=== PATIENT | female | born 1985 | race Caucasian/White ===

== ENCOUNTER 2016-11-05 00:01 | Inpatient (IN) | payer OTHER ==
[2016-11-05] MEDS ORDERED: LIDOCAINE HCL 50 ML VIAL PERI PRN (00:07)
[2016-11-05] MEDS ORDERED: ONDANSETRON HCL/PF 2 MG/ML VIAL IV PRN (00:07)
[2016-11-05] MEDS ORDERED: OXYTOCIN/DEXTROSE 5%-WATER 30 UNITS/500 ML BAG IV ONE (00:07)
[2016-11-05] MEDS ORDERED: MISOPROSTOL 100 MCG TABLET VG PRN (00:07)
[2016-11-05 00:17] LABS: Hematocrit 38.6 % (37.0-47.0); Hemoglobin 13.2 gm/dL (12.5-16.0); Mean Cell Volume 84.8 fl (78-100); Mean Corpuscular Hgb Conc 34.2 g/dl (32-36); Mean Platelet Volume 12.2 fl (6.0-9.5); Neutrophil # 10.4 K/mm3 (1.3-6.0); Neutrophil % 68.1 % (42-75.0); Platelet Count 177 K/mm3 (150-450); Red Blood Count 4.55 M/mm3 (4.2-5.4); Red Cell Distribution Width 13.6 % (11.5-14.0); White Blood Count 15.3 K/mm3 (4.0-10.5)
[2016-11-05 00:30] LABS: Albumin * 2.6 gm/dl (3.4-5.0); Anion Gap 14.2 mmol/L (6.8-13.8); BUN/Creatinine Ratio 15.5 (9.0-21.6); Bilirubin, Total 0.3 mg/dL (0.0-1.1); Ca. Corrected For Albumin 10.3 mg/dL (8.4-10.2); Calcium * 9.5 mg/dL (7.9-10.9); Carbon Dioxide 22.9 mmol/L (24-32.6); Potassium 4.1 mmol/L (3.4-4.6); Total Protein 6.1 gm/dL (6.2-8.2)
[2016-11-05 03:52] LABS: Random Urine Total Protein Less than 6.0 mg/dL (0-12)
--- NOTE | 2016-11-05 08:46 | PN ---
Progess Note - Interim Narrative: 11/05/16 08:44 Patient starting to feel contractions Vital signs stable - blood pressures mildly elevated none in severe range. Status post Cytotec 25 g one dose at around 1:30 AM FHT: 140 baseline, reassuring Contractions q 2-4 min Cervix: Fingertip/50/-3 Impression: Intrauterine at 37 weeks induction of labor for gestational hypertension Plan: Continue present plan
[2016-11-05] MEDS: RINGERS SOLUTION,LACTATED 1,000 ML IV ONE (20:54)
[2016-11-06] MEDS ORDERED: BUPIVACAINE HCL/0.9 % NACL/PF 250 ML EP PRN ×2 (08:16→09:03)
[2016-11-06] MEDS ORDERED: NALOXONE HCL 1 MG/1 ML SYRG IV PRN (08:16)
[2016-11-06] MEDS ORDERED: ONDANSETRON HCL/PF 2 MG/ML VIAL IV PRN (08:16)
[2016-11-06] MEDS ORDERED: BUPIVACAINE HCL/PF 30 ML VIAL EP SCH (08:30)
--- NOTE | 2016-11-06 08:56 | PN ---
Progess Note - Interim Narrative: 11/06/16 08:54 Patient desiring an epidural. Reading contractions 12/27. Vital signs stable. Pitocin at 6 mu/min. FHT: 135 baseline, reassuring Contractions q 2-3 min Cervix: 1-2/50/-2 Impression: Intrauterine at 37-1/7 weeks on second day of induction of labor for gestational hypertension - no blood pressures in severe range over the past 12 hours. Plan: We'll request epidural and rupture membranes when a little further along.
[2016-11-06] MEDS: RINGERS SOLUTION,LACTATED 1,000 ML IV ONE (08:59)
[2016-11-06] MEDS ORDERED: fentaNYL CITRATE/PF 50 MCG/ML AMPUL IT SCH (09:15)
--- NOTE | 2016-11-06 10:05 | OR ---
Anesthesia Procedure Note - Anesthesia Procedure Note Narrative: Vital Signs - Last Taken Temp 36.5 C 11/06/16 09:36 Pulse 77 11/06/16 09:36 Resp 16 11/06/16 09:36 BP 142/97 11/06/16 09:36 Pulse Ox 97 11/06/16 09:36 11/06/16 10:05 ANESTHESIA PROCEDURE NOTE Date of Procedure: 11/06/2016 Time of procedure: 954. Performed by: Romario Escoto CRNA Brain Surgeon: None. Preprocedure diagnosis: Active labor. Post procedure diagnosis: Same. Procedure: Insertion of labor epidural. 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 Findings: See below. Details of the procedure: The patient was placed in a sitting position. Back was prepped with DuraPrep. Patient was then draped in a sterile fashion. Lidocaine 1% was infiltrated to the skin and subcutaneous tissues at the level of the L3 4 interspace. The epidural space was identified using a 18-gauge Tuohy needle with [id number] technique. 20 mcg fentanyl was given intrathecally using a 27 ga. spinal needle. Epidural catheter was inserted without difficulty. Negative test dose was elicited using 5 mL of 1.5% preservative-free lidocaine plus epinephrine 1 200,000. The epidural catheter was then taped and secured in place. EBL: Minimal. Fluids: N/A. Specimen: N/A. Post procedure condition: The patient tolerated the procedure well. No complications were noted. Thank you for this consultation. Gage CRNA
[2016-11-06] MEDS: DEXTROSE 5%-LACTATED RINGERS 1,000 ML IV PRN ×3 (10:30→23:24)
--- NOTE | 2016-11-06 13:17 | PN ---
Progess Note - Interim Narrative: 11/06/16 13:16 Patient comfortable with epidural Vital signs stable. Pitocin at 15 mu/min. FHT: 130 baseline, reassuring Contractions q 2-4 minutes Cervix: No change, AROM-clear Impression: Intrauterine at 37-1/7 week weeks induction of labor for gestational hypertension making slow progress Plan: Continue present plan
[2016-11-06] MEDS ORDERED: ACETAMINOPHEN 500 MG TABLET PO ONE (16:33)
--- NOTE | 2016-11-06 17:39 | PN ---
Progess Note - Interim Narrative: 11/06/16 17:36 Patient comfortable with epidural Vital signs stable. Pitocin at 18 mu/min. FHT: 130 baseline, reassuring Contractions q 2-3 min Cervix: 4/80/-2 Impression: Intrauterine at 37 1/7 weeks induction of labor for gestational hypertension Plan: Continue present plan
[2016-11-07] MEDS ORDERED: BISACODYL 10 MG SUPP.RECT RC PRN (01:54)
[2016-11-07] MEDS ORDERED: oxyCODONE HCL/ACETAMINOPHEN 1 TAB TABLET PO PRN ×2 (01:54)
[2016-11-07] MEDS ORDERED: HYDROCORTISONE 30 APPL TUBE TP PRN (01:54)
[2016-11-07] MEDS ORDERED: OXYTOCIN/DEXTROSE 5%-WATER 30 UNITS/500 ML BAG IV ONE (01:54)
[2016-11-07] MEDS ORDERED: GLYCERIN/WITCH HAZEL LEAF 40 APPL BOX TP PRN (01:54)
[2016-11-07] MEDS ORDERED: SENNOSIDES 8.6 MG TABLET PO PRN (01:54)
[2016-11-07] MEDS ORDERED: BENZOCAINE/MENTHOL 81 SPRAY CAN TP PRN (01:54)
--- NOTE | 2016-11-07 02:00 | OR ---
Operative Report - Dictated Report Narrative: Indication: Maternal exhaustion and tachycardia Pre Procedure Patient was counseled to the risk, benefits, and alternatives to operative vaginal delivery. All questions were answered. Patient consented to proceed with operative vaginal delivery. heart rate interpretation: Baseline 170 with good beat to beat variability , good accelerations, and occasional late deceleration, EFW 3400 g, station +2, Position of head LUIS, Anesthesia: epidural Cervix was completely dilated and effaced, maternal- size appropriate for application, bladder was emptied Procedure Galarza/Luikart forceps easily applied, hinge/lock approximated without difficulty, 2 pulls, advancement in station with each pull, degree of rotation 0 -45, forceps removed once the head cleared the pubic bone Post Procedure Viable female born at 0 113 on [birth year]2016 with Apgars 8 and 9, weighing 3215 g in LUIS position. Cord clamping delayed approximately 1 minute Cord gases not collected, Placenta spontaneously delivered, EBL 75 mL, loose nuchal cord 1 with foot cord 1, no injury, no shoulder dystocia Lacerations: Second-degree vaginal laceration (5 cm) repaired with 3-0 Vicryl Rapide History for MU Definition: * The number of deliveries resulting in a live the patient experienced prior to current hospitalization * The previous delivery of live twins or any live multiple gestation is considered one live event. *If primagravida or nulliparous is documented select zero for the number of previous live births. Live Events: 0
[2016-11-07] MEDS: IBUPROFEN 800 MG TABLET PO PRN ×3 (02:02→17:23)
[2016-11-07] MEDS ORDERED: HYDROcodone/ACETAMINOPHEN 1 EACH TABLET PO PRN (02:06)
[2016-11-07] MEDS: HYDROcodone/ACETAMINOPHEN 1 EACH TABLET PO PRN ×2 (02:31→17:22)
[2016-11-07] MEDS ORDERED: PRENATAL VIT#96/FERROUS FUM/FA 1 TAB TABLET PO SCH (09:00)
[2016-11-07] MEDS ORDERED: MAGNESIUM PO SCH (09:00)
[2016-11-07] MEDS: MAGNESIUM OXIDE 400 MG TABLET PO SCH (11:14)
[2016-11-07] MEDS: DOCUSATE SODIUM 100 MG CAPSULE PO SCH ×2 (11:14→20:26)
[2016-11-07] MEDS: PRENATAL VIT#96/FERROUS FUM/FA 1 TAB TABLET PO SCH (11:14)
[2016-11-08] MEDS: HYDROcodone/ACETAMINOPHEN 1 EACH TABLET PO PRN ×3 (03:45→19:02)
[2016-11-08] MEDS: IBUPROFEN 800 MG TABLET PO PRN ×3 (03:45→20:14)
[2016-11-08] MEDS: PRENATAL VIT#96/FERROUS FUM/FA 1 TAB TABLET PO SCH (08:45)
[2016-11-08] MEDS: MAGNESIUM OXIDE 400 MG TABLET PO SCH (08:45)
[2016-11-08] MEDS: DOCUSATE SODIUM 100 MG CAPSULE PO SCH ×2 (08:45→20:12)
--- NOTE | 2016-11-08 09:12 | PN ---
Subjective - Date and Time Seen Date: 11/08/16 Time: 09:08 Objective - Vitals Vitals: Last Vital Signs Temp 36.4 C L 11/08/16 07:04 Pulse 100 11/08/16 07:04 Resp 16 11/08/16 07:04 BP 152/95 11/08/16 07:04 Pulse Ox 97 11/08/16 07:04 Patient complaining of tailbone pain. 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 Lochia wnl Abdomen - soft, nontender Uterus - firm, at umbilicus - 1 No calf tenderness DTR-2/4 1-2+ pitting edema of lower extremities Impression: day #1 - s/p spontaneous vaginal delivery. Gestational hypertension-stable. Fractured coccyx-stable. Plan: Continue routine care. Continue monitoring for signs or symptoms of severe features of preeclampsia/gestational hypertension. Ice packs and soft cushion for sitting on. Cauti Physician Documentation - Urinary Catheter Management Urethral ([place]) Date of Insertion: 11/06/16 Time of Insertion: 10:18
[2016-11-09] MEDS: HYDROcodone/ACETAMINOPHEN 1 EACH TABLET PO PRN ×3 (00:59→10:22)
[2016-11-09] MEDS: IBUPROFEN 800 MG TABLET PO PRN (05:58)
[2016-11-09 08:06] VITALS: BP 141/95
[2016-11-09] MEDS: PRENATAL VIT#96/FERROUS FUM/FA 1 TAB TABLET PO SCH (09:01)
[2016-11-09] MEDS: MAGNESIUM OXIDE 400 MG TABLET PO SCH (09:02)
[2016-11-09] MEDS: DOCUSATE SODIUM 100 MG CAPSULE PO SCH (09:02)
--- NOTE | 2016-11-09 13:06 | PN ---
Subjective - Date and Time Seen Date: 11/09/16 Time: 13:05 - Seen at 0930 this am Objective - Vitals Vitals: Last Vital Signs Temp 36.5 C 11/09/16 01:00 Pulse 102 H 11/09/16 07:30 Resp 20 11/09/16 07:30 BP 141/95 11/09/16 07:30 Pulse Ox 100 11/09/16 07:30 Patient denies complaints. Lochia wnl Abdomen - soft, nontender Uterus - firm, at umbilicus - 2 No calf tenderness Impression: day #2 - s/p spontaneous vaginal delivery. Gestational hypertension-stable. Fractured coccyx stable and pain well controlled. Plan: Routine discharge instructions. Preeclampsia precautions. Follow-up in the office in 1 week for blood pressure check and 4 weeks for routine visit. Cauti Physician Documentation - Urinary Catheter Management Urethral ([place]) Date of Insertion: 11/06/16 Time of Insertion: 10:18
== END 2016-11-09 10:30 | disposition home or self-care (01) | DRG 775 ==
LOC: OB 00:01
PROVIDERS: ADMIT Obstetrics & Gynecology; ATTEND Obstetrics & Gynecology
PROC: 10D07Z3 Extraction of Products of Conception, Low Forceps, Via Natural or Artificial Opening (ICD-10-PCS; principal; 2016-11-07)
PROC: 0KQM0ZZ Repair Perineum Muscle, Open Approach (ICD-10-PCS; 2016-11-07)
PROC: 10907ZC Drainage of Amniotic Fluid, Therapeutic from Products of Conception, Via Natural or Artificial Opening (ICD-10-PCS; 2016-11-07)
PROC: 4A1HXCZ Monitoring of Products of Conception, Cardiac Rate, External Approach (ICD-10-PCS; 2016-11-07)
DX: O76 Abnormality in fetal heart rate and rhythm complicating labor and delivery (principal); O71.6 Obstetric damage to pelvic joints and ligaments; O75.81 Maternal exhaustion complicating labor and delivery; O13.4 Gestational [pregnancy-induced] hypertension without significant proteinuria, complicating childbirth; O69.81X0 Labor and delivery complicated by cord around neck, without compression, not applicable or unspecified; O70.1 Second degree perineal laceration during delivery; Z3A.37 37 weeks gestation of pregnancy; Z37.0 Single live birth; E78.5 Hyperlipidemia, unspecified
CPT/HCPCS: 36415; 59025; 80053; 82570; 84156; 85025; J2405